=== PATIENT | male | born 1980 | race Hispanic/Latino ===

== ENCOUNTER 2016-12-20 16:03 | Emergency (ER) | payer OTHER ==
[2016-12-20] MEDS ORDERED: Lidocaine 1% 20 ML MDV ONE (16:10)
[2016-12-20] MEDS ORDERED: Bacitracin Zinc 1 Packet ONE (16:32)
== END 2016-12-20 16:44 | disposition home or self-care (01) ==
LOC: NAV ERS 16:03
DX: S81.811A Laceration without foreign body, right lower leg, initial encounter (principal); W25.XXXA Contact with sharp glass, initial encounter; Y92.009 Unspecified place in unspecified non-institutional (private) residence as the place of occurrence of the external cause
CPT/HCPCS: 12002; J2001